=== PATIENT | female | born 1990 | race American Indian/Alaskan Native ===

== ENCOUNTER 2020-12-24 16:39 | Emergency (ER) | payer SELFPAY ==
[2020-12-24 16:51] VITALS: BP 126/89
--- NOTE | 2020-12-24 17:39 | Emergency Department Report ---
ED Female HPI - General Chief complaint: Abdominal Pain Stated complaint: STOMACH PAIN/PELVIC PAIN Time Seen by Provider: 12/24/20 17:26 Source: patient Mode of arrival: Ambulatory Limitations: No Limitations - History of Present Illness Initial comments: Patient is a 30-year-old female presents emergency room with complaints of lesions present to her genital area that began a few days ago. She states that she also noticed some swelling in her groin. Patient states that she recently found out that her partner was bisexual. She states that 4 months ago she had a STD panel performed and states that everything was negative. she denies any abdominal pain, urinary symptoms, vaginal discharge, vaginal bleeding, fever, nausea, vomiting, diarrhea. No past medical history. No allergies to medications. Last menstrual cycle 12/14/2020. - Related Data Previous Rx's Medication Instructions Recorded Last Taken Type Acyclovir [Zovirax Tab] 400 mg PO TID 7 Days #21 tab 12/24/20 Unknown Rx Allergies Allergy/AdvReac Type Severity Reaction Status Date / Time No Known Allergies Allergy Verified 12/24/20 16:49 ED Review of Systems ROS: Stated complaint: STOMACH PAIN/PELVIC PAIN Other details as noted in HPI Comment: All other systems reviewed and negative ED Past Medical Hx - Past Medical History Previous Medical History?: No - Surgical History Past Surgical History?: No - Medications Home Medications: Home Medications Medication Instructions Recorded Confirmed Last Taken Type Acyclovir [Zovirax Tab] 400 mg PO TID 7 Days #21 tab 12/24/20 Unknown Rx ED Physical Exam - General Limitations: No Limitations General appearance: alert, in no apparent distress - Head Head exam: Present: atraumatic, normocephalic - Eye Eye exam: Present: normal appearance - ENT ENT exam: Present: mucous membranes moist - External exam: Present: other (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, 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, small shallow ulcerations present to the labia and perineum, small inguinal LAD bilaterally) - Neurological Exam Neurological exam: Present: alert, oriented X3 - Psychiatric Psychiatric exam: Present: normal affect, normal mood - Skin Skin exam: Present: warm, dry, intact ED Course Vital Signs 12/24/20 16:49 Temperature 98 F Pulse Rate 99 H Respiratory 16 Rate Blood Pressure 126/89 [Left] O2 Sat by Pulse 100 Oximetry ED Medical Decision Making - Medical Decision Making Patient is a 30-year-old female presents emergency room with complaints of lesions present to her genital area that began a few days ago. She states that she also noticed some swelling in her groin. Patient states that she recently found out that her partner was bisexual. She states that 4 months ago she had a STD panel performed and states that everything was negative. she denies any abdominal pain, urinary symptoms, vaginal discharge, vaginal bleeding, fever, nausea, vomiting, diarrhea. No past medical history. No allergies to medications. Last menstrual cycle 12/14/2020. Vitals are normal. 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 Examination appears most consistent with genital herpes outbreak. Patient given prescription for medication. Advised patient Please take medication as prescribed. Please follow-up with the clinic or the health department in order to have a full STD panel. Please have any partner tested and treated as well. Avoid sexual intercourse as this is contagious. This is lifelong. Return to emergency room for any new or worsening symptoms. Critical care attestation.: If time is entered above; I have spent that time in minutes in the direct care of this critically ill patient, excluding procedure time. ED Disposition Clinical Impression: LAD (lymphadenopathy) Genital herpes Qualifiers: Herpes simplex infection site: vulvovaginitis Qualified Code(s): A60.04 - Herpesviral vulvovaginitis Disposition: HOME / SELF CARE / HOMELESS Is pt being admited?: No Does the pt Need Aspirin: No Condition: Stable Instructions: Lymphadenopathy, Genital Herpes, Abdominal Pain (ED) Additional Instructions: Please take medication as prescribed. Please follow-up with the clinic or the health department in order to have a full STD panel. Please have any partner te sted and treated as well. Avoid sexual intercourse as this is contagious. This is lifelong. Return to emergency room for any new or worsening symptoms. Prescriptions: Acyclovir [Zovirax Tab] 400 mg PO TID 7 Days #21 tab Referrals: [facility] [Outside] - 2-3 Days Time of Disposition: 17:37 Print Language: NAMIBIAN
== END 2020-12-24 18:04 | disposition home or self-care (01) ==
LOC: ED 16:39
DX: A60.00 Herpesviral infection of urogenital system, unspecified (principal); R59.1 Generalized enlarged lymph nodes; Z79.899 Other long term (current) drug therapy
CPT/HCPCS: 99281